=== PATIENT | female | born 1985 | race Caucasian/White ===

== ENCOUNTER 2016-09-08 14:51 | Emergency (ER) | payer OTHER ==
--- NOTE | 2016-09-08 14:57 | EDM.PDOC ---
ED HPI GENERAL MEDICAL PROBLEM - General Chief Complaint: Chest Pain Stated Complaint: CHEST PAINS Time Seen by Provider: 09/08/16 14:57 Source of Information: Reports: Patient - History of Present Illness INITIAL COMMENTS - FREE TEXT/NARRATIVE: HISTORY AND PHYSICAL: History of present illness: [] Patient presents with chest pain 3/10 nonradiating worsened by movement however pain has been worsening throughout the day, patient has a history of GERD, as well as reproducible component as softball just began She states she has had some associated shoulder pain and back pain not necessarily radiation but consistent with softball just starting up, I can reproduce pain with palpation over deltoid distribution as well as along axillary line and infraspinatus No fever nausea vomiting chills sweats no chest pain shortness breath headache current dizziness or palpitation no bowel or urine symptoms Review of systems: As per history of present illness and below otherwise all systems reviewed and negative. Past medical history: As per history of present illness and as reviewed below otherwise noncontributory. Surgical history: As per history of present illness and as reviewed below otherwise noncontributory. Social history: No reported history of drug or alcohol abuse. Family history: As per history of present illness and as reviewed below otherwise noncontributory. Physical exam: HEENT: Atraumatic, normocephalic, pupils reactive, negative for conjunctival pallor or scleral icterus, mucous membranes moist, throat clear, neck supple, nontender, trachea midline. I can reproduce mild dizziness with head tilt to the right there is ear effusion noted left and right no infectious process or exudate landmarks are visualized Lungs: Clear to auscultation, breath sounds equal bilaterally, chest nontender. Heart: S1S2, regular, negative for clicks, rubs, or JVD. Abdomen: Soft, nondistended, nontender. Negative for masses or hepatosplenomegaly. Negative for costovertebral tenderness. Pelvis: Stable nontender. Genitourinary: Deferred. Rectal: Deferred. Extremities: Atraumatic, negative for cords or calf pain. Neurovascular unremarkable. Neuro: Awake, alert, oriented. Cranial nerves II through XII unremarkable. Cerebellum unremarkable. Motor and sensory unremarkable throughout. Exam nonfocal. Diagnostics: [] Lab as below EKG Chest one view Therapeutics: [] Tonics GI cocktail Cataflam 50 mg by mouth 3 times a day when necessary [id number] Benadryl may benefit benign positional vertigo Impression: [] Bilateral ear effusion Benign positional vertigo Muscle spasm Definitive disposition and diagnosis as appropriate pending reevaluation and review of above. Left Chest Pain Score (Numeric/FACES): 10 - Related Data Allergies Allergy/AdvReac Type Severity Reaction Status Date / Time No Known Allergies Allergy Verified 09/08/16 15:10 Home Meds: Home Meds . 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 - Past Surgical History HEENT Surgical History: Reports: Oral surgery Social & Family History - Family History Cardiac: Reports: Hypertension, Other (see below) Other Cardiac Family History: heart surgery Respiratory: Reports: Asthma, Other (see below) Other Respiratory Family Hisory: emphysema Neurological: Reports: Seizure Hematologic: Reports: Other (see below) Other Hematologic Family History: lymphoma Oncologic: Reports: Lymphoma, Prostate, Other (see below) Other Oncologic Family History: stomach - Tobacco Use Smoking Status *Q: Never Smoker Years of Tobacco use: 10 - Alcohol Use Days Per Week of Alcohol Use: 0 - Recreational Drug Use Recreational Drug Use: No ED ROS GENERAL - Review of Systems Review Of Systems: ROS reveals no pertinent complaints other than HPI. ED EXAM, GENERAL - Physical Exam Exam: See Below Course - Vital Signs Last Recorded V/S: Last Vital Signs Temp 37.1 C 09/08/16 15:10 Pulse 101 H 09/08/16 15:10 Resp 16 09/08/16 15:43 BP 126/77 09/08/16 15:43 Pulse Ox 100 09/08/16 15:43 - Orders/Labs/Meds Orders: Active Orders 24 hr Category Date Time Status EKG Documentation Completion [RC] STAT Care 09/08/16 14:56 Active UA W/MICROSCOPIC [URIN] Stat Lab 09/08/16 14:56 Uncollected Labs: Laboratory Tests 09/08/16 09/08/16 09/08/16 Range/Units 15:05 15:05 15:05 WBC 8.04 (4.0-11.0) K/uL RBC 4.60 (4.30-5.90) M/uL Hgb 13.3 (12.0-16.0) g/dL Hct 40.9 (36.0-46.0) % MCV 88.9 (80.0-98.0) fL MCH 28.9 (27.0-32.0) pg MCHC 32.5 (31.0-37.0) g/dL RDW Std Deviation 45.8 (28.0-62.0) fl RDW Coeff of Riki 14 (11.0-15.0) % Plt Count 269 (150-400) K/uL MPV 9.80 (7.40-12.00) fL Neut % (Auto) 74.9 (48.0-80.0) % Lymph % (Auto) 17.4 (16.0-40.0) % Corson % (Auto) 6.0 (0.0-15.0) % Eos % (Auto) 1.6 (0.0-7.0) % Baso % (Auto) 0.1 (0.0-1.5) % Neut # (Auto) 6.0 H (1.4-5.7) K/uL Lymph # (Auto) 1.4 (0.6-2.4) K/uL Corson # (Auto) 0.5 (0.0-0.8) K/uL Eos # (Auto) 0.1 (0.0-0.7) K/uL Baso # (Auto) 0.0 (0.0-0.1) K/uL Nucleated RBC % 0.0 /100WBC Nucleated RBCs # 0 K/uL Sodium 139 (136-146) mmol/L Potassium 3.8 (3.5-5.1) mmol/L Chloride 107 (98-110) mmol/L Carbon Dioxide 21 (21-31) mmol/L BUN 8 (6.0-23.0) mg/dL Creatinine 0.9 (0.6-1.5) mg/dL Est Cr Clr Drug Dosing 80.00 mL/min Estimated GFR (MDRD) > 60.0 ml/min Glucose 87 (60-110) mg/dL Calcium 8.6 L (8.8-10.8) mg/dL Total Bilirubin 0.5 (0.1-1.5) mg/dL AST 18 (5-40) IU/L ALT 15 (8-54) IU/L Alkaline Phosphatase 61 (40-150) Creatine Kinase 183 (9-236) IU/L CK-MB (CK-2) 1.1 (0-6.6) ng/ml Troponin I < 0.10 (0.0-0.29) NG/ML Total Protein 7.6 (6.0-8.0) g/dL Albumin 4.3 (3.5-5.0) g/dL Globulin 3.3 (2.0-3.5) g/dL Albumin/Globulin Ratio 1.3 (1.3-2.8) Meds: Medications Discontinued Medications Generic Name Dose Route Start Last Admin Trade Name Agapitoq PRN Reason Stop Dose Admin Sodium Chloride 1,000 mls @ 999 mls/hr 09/08/16 15:07 09/08/16 15:10 Normal Saline IV 09/08/16 16:07 999 mls/hr STAT ONE Administration Pantoprazole Sodium 80 mg 09/08/16 15:08 09/08/16 15:36 Protonix Iv IVPUSH 09/08/16 15:09 80 mg .BOLUS ONE Administration Departure - Departure Time of Disposition: 16:24 Disposition: Home, Self-Care 01 Condition: good Clinical Impression: Muscle spasm, Benign positional vertigo Forms: ED Department Discharge Additional Instructions: Rest Ice 20 minute intervals 3 times daily Medication as prescribed [id number] Benadryl 25-50 mg 4 times a day a benefit for her ear effusion Return if symptoms persist or worsen Followup with primary care in 2 weeks HISTORY AND PHYSICAL: History of present illness: [] Review of systems: As per history of present illness and below otherwise all systems reviewed and negative. Past medical history: As per history of present illness and as reviewed below otherwise noncontributory. Surgical history: As per history of present illness and as reviewed below otherwise noncontributory. Social history: No reported history of drug or alcohol abuse. Family history: As per history of present illness and as reviewed below otherwise noncontributory. Physical exam: HEENT: Atraumatic, normocephalic, pupils reactive, negative for conjunctival pallor or scleral icterus, mucous membranes moist, throat clear, neck supple, nontender, trachea midline. Lungs: Clear to auscultation, breath sounds equal bilaterally, chest nontender. Heart: S1S2, regular, negative for clicks, rubs, or JVD. Abdomen: Soft, nondistended, nontender. Negative for masses or hepatosplenomegaly. Negative for costovertebral tenderness. Pelvis: Stable nontender. Genitourinary: Deferred. Rectal: Deferred. Extremities: Atraumatic, negative for cords or calf pain. Neurovascular unremarkable. Neuro: Awake, alert, oriented. Cranial nerves II through XII unremarkable. Cerebellum unremarkable. Motor and sensory unremarkable throughout. Exam nonfocal. Diagnostics: [] Therapeutics: [] Impression: [] Definitive disposition and diagnosis as appropriate pending reevaluation and review of above. - My Orders Last 24 Hours: My Active Orders 09/08/16 14:56 EKG Documentation Completion [RC] STAT UA W/MICROSCOPIC [URIN] Stat - Assessment/Plan Last 24 Hours: My Active Orders 09/08/16 14:56 EKG Documentation Completion [RC] STAT UA W/MICROSCOPIC [URIN] Stat
[2016-09-08] MEDS ORDERED: Sodium Chloride 0.9% 1,000 ML IV ONE (15:07)
[2016-09-08] MEDS ORDERED: Pantoprazole 40 MG Vial IVPUSH ONE (15:08)
[2016-09-08 15:48] LABS: CHLORIDE,CL 107 mmol/L (98-110); SODIUM,NA 139 mmol/L (136-146)
--- NOTE | 2016-09-08 15:50 | CR ---
EXAMINATION: Portable chest radiograph. HISTORY: Pain. FINDINGS: The trachea is midline. The cardiomediastinal silhouette is within normal limits. No pulmonary infil trates, effusions or pneumothorax. Osseous structures appear unremarkable. IMPRESSION: No acute cardiopulmonary process.
[2016-09-08 19:18] VITALS: BP 120/74
== END 2016-09-08 17:03 | disposition home or self-care (01) ==
LOC: MW.ED 14:51
DX: H81.10 Benign paroxysmal vertigo, unspecified ear (principal); H93.8X3 Other specified disorders of ear, bilateral; M62.838 Other muscle spasm
CPT/HCPCS: 71010; 80053; 81001; 82550; 82553; 84484; 85025; 87086; 93005; 96361; 96374; 99285; C9113; J7040; 99284

== ENCOUNTER 2016-09-19 14:16 | Emergency (ER) | payer OTHER ==
--- NOTE | 2016-09-19 14:35 | EDM.PDOC ---
ED HPI ENT - General Chief Complaint: ENT Problem Stated Complaint: SOMETHING STUCK IN THROAT Time Seen by Provider: 09/19/16 14:35 Source of Information: Reports: Patient History Limitations: Reports: No limitations - History of Present Illness INITIAL COMMENTS - FREE TEXT/NARRATIVE: HISTORY AND PHYSICAL: History of present illness: [Patient comes to the emergency room complaining of a sunflower seed stuck in back of her throat. She was eating sunflower seeds yesterday morning during a baseball game and she feels that one of seed shells is stuck in her left throat. She's tried numerous rhnu-ovl-calxecw remedies and treatments including gargling and eating and drinking various foods to get seed to pass. She has not had any difficulty breathing or difficulty swallowing. She has discomfort when she moves or twists her tongue. Has no other complaints or concerns today. Review of systems: As per history of present illness and below otherwise all systems reviewed and negative. Past medical history: As per history of present illness and as reviewed below otherwise noncontributory. Surgical history: As per history of present illness and as reviewed below otherwise noncontributory. Social history: No reported history of drug or alcohol abuse. Family history: As per history of present illness and as reviewed below otherwise noncontributory. Physical exam: HEENT: Atraumatic, normocephalic. Oral mucous membranes are pink and moist. Teeth are in good dentition. Posterior oropharynx is difficult to assess as patient is unable to fully relax her tongue even with use of a tongue blade. No foreign bodies visualized. Neck: Supple, no lymphadenopathy. The case midline. Lungs: Clear to auscultation, breath sounds equal bilaterally. Heart regular rate rhythm: No murmur gallop click or rub. Diagnostics: [Soft tissues of the neck x-ray] Impression: [Foreign body, throat] Plan: [Discussed x-ray findings with patient no foreign body. Discussed that am unable to locate a foreign body and that she should followup with ENT tomorrow morning for possible bronchoscopy. She is given referral information. Verbalized understanding of today's plan all of her questions are answered and concerns are addressed.] Definitive disposition and diagnosis as appropriate pending reevaluation and review of above. - Related Data Allergies/ADRs: Allergies Allergy/AdvReac Type Severity Reaction Status Date / Time No Known Allergies Allergy Verified 09/19/16 14:26 Home Meds: Home Meds . [No Known Home Meds] 09/08/16 [History] Past Medical History - Past Health History Medical/Surgical History: Denies Medical/Surgical History Gastrointestinal History: Reports: GERD [employer] History: Reports: Neurological History: Reports: Migraines - Past Surgical History HEENT Surgical History: Reports: Oral surgery Social & Family History - Family History Family Medical History: Noncontributory Cardiac: Reports: Hypertension, Other (see below) Other Cardiac Family History: heart surgery Respiratory: Reports: Asthma, Other (see below) Other Respiratory Family Hisory: emphysema Neurological: Reports: Seizure Hematologic: Reports: Other (see below) Other Hematologic Family History: lymphoma Oncologic: Reports: Lymphoma, Prostate, Other (see below) Other Oncologic Family History: stomach - Tobacco Use Smoking Status *Q: Never Smoker Years of Tobacco use: 10 Second Hand Smoke Exposure: No - Caffeine Use Caffeine Use: Reports: Coffee Caffeine Use Comment: 2-3 cups - Alcohol Use Days Per Week of Alcohol Use: 0 - Recreational Drug Use Recreational Drug Use: No ED ROS ENT - Review of Systems Review Of Systems: ROS reveals no pertinent complaints other than HPI. ED EXAM, ENT - Physical Exam Exam: See Below Course - Vital Signs Last Recorded V/S: Last Vital Signs Temp 97.4 F 09/19/16 14:28 Pulse 72 09/19/16 16:02 Resp 16 09/19/16 16:02 BP 116/68 09/19/16 16:02 Pulse Ox 98 09/19/16 16:02 - Orders/Labs/Meds Orders: Active Orders 24 hr Category Date Time Status Neck Soft Tissue [CR] Stat Exams 09/19/16 14:48 Taken Departure - Departure Time of Disposition: 16:00 Disposition: Home, Self-Care 01 Condition: good Clinical Impression: Foreign body in throat Qualifiers: Encounter type: initial encounter Qualified Code(s): T17.208A - Unspecified foreign body in pharynx causing other injury, initial encounter Instructions: Sore Throat Referrals: PCP,None [Primary Care Provider] - Forms: ED Department Discharge Additional Instructions: The following information is given to patients seen in the emergency department who are being discharged to home. This information is to outline your options for follow-up care. We provide all patients seen in our emergency department with a follow-up referral. The need for follow-up, as well as the timing and circumstances, are variable depending upon the specifics of your emergency department visit. If you don't have a primary care physician on staff, we will provide you with a referral. We always advise you to contact your personal physician following an emergency department visit to inform them of the circumstance of the visit and for follow-up with them and/or the need for any referrals to a consulting specialist. The emergency department will also refer you to a specialist when appropriate. This referral assures that you have the opportunity for follow-up care with a specialist. All of these measure are taken in an effort to provide you with optimal care, which includes your follow-up. Under all circumstances we always encourage you to contact your private physician who remains a resource for coordinating your care. When calling for follow-up care, please make the office aware that this follow-up is from your recent emergency room visit. If for any reason you are refused follow-up, please contact the emergency department at and asked to speak to the emergency department charge nurse. Specialty care- ENT [address] [place] [address] Call the above listed clinic first thing tomorrow morning to schedule an evaluation. Continue to push fluids and gargle. Return to ER as needed as discussed. - My Orders Last 24 Hours: My Active Orders 09/19/16 14:48 Neck Soft Tissue [CR] Stat - Assessment/Plan Last 24 Hours: My Active Orders 09/19/16 14:48 Neck Soft Tissue [CR] Stat
[2016-09-19 16:19] VITALS: BP 116/68
--- NOTE | 2016-09-20 11:17 | CR ---
EXAM DATE: 09/19/16 PATIENT'S AGE: 31 Patient: KURTIS HERNANDEZ Facility: [place], [place] Site . Site : 1983 Study: XRay ST Neck [id number]/9/2017 3:07:30 PM Ordering Physician: Doctor Parham Final Report: Indication: Foreign body in throat. Findings: The prevertebral soft tissue structures are intact and there is no abnormal thickening noted the prevertebral soft tissues or epiglottis. No radiopaque foreign body is identified. Trachea is intact. Dilation of the upper cervical spine is unremarkable. Impression: Normal soft tissue neck. If there is continued clinical concern regarding foreign body in the throat, consider direct endoscopic evaluation. Dictated by Dalia Bhat MD @ Sep 19 2016 3:38PM (Electronic Signature) Report Signed by Proxy and Original Signed Document filed in the Medical Record. ROMAINE
== END 2016-09-19 16:02 | disposition home or self-care (01) ==
LOC: MW.ED 14:16
DX: T17.228A Food in pharynx causing other injury, initial encounter (principal); K21.9 Gastro-esophageal reflux disease without esophagitis
CPT/HCPCS: 70360; 70360-26; 99282; 99284

== ENCOUNTER 2017-05-17 08:34 | Emergency (ER) | payer OTHER ==
[2017-05-17] MEDS ORDERED: Ibuprofen 800 MG Tab PO ONE (08:53)
--- NOTE | 2017-05-17 09:19 | CR ---
EXAMINATION: Left ankle HISTORY: Pain COMPARISON: 01/28/2014 TECHNIQUE: 3 views FINDINGS/IMPRESSION: There is moderate soft tissue swelling noted surrounding the left ankle most pro minent overlying the lateral malleolus. There is no definite fracture or acute osseous abdomen identi fied. Ankle mortise and talar dome appear intact.
[2017-05-17 10:15] VITALS: BP 128/70
--- NOTE | 2017-05-19 17:19 | EDM.PDOC ---
ED HPI GENERAL MEDICAL PROBLEM - General Chief Complaint: Lower Extremity Injury/Pain Stated Complaint: LT ANKLE HURTS Time Seen by Provider: 05/17/17 09:04 Source of Information: Reports: Patient History Limitations: Reports: No Limitations - History of Present Illness INITIAL COMMENTS - FREE TEXT/NARRATIVE: History of present illness: []Patient jumped out of truck and felt pain in her left ankle. She notes swelling and tenderness over the lateral part of her ankle. Review of systems: As per history of present illness and below otherwise all systems reviewed and negative. Past medical history: As per history of present illness and as reviewed below otherwise noncontributory. Surgical history: As per history of present illness and as reviewed below otherwise noncontributory. Social history: No reported history of drug or alcohol abuse. Family history: As per history of present illness and as reviewed below otherwise noncontributory. Physical exam: General: Well developed, well nourished in NAD HEENT: Atraumatic, normocephalic, pupils reactive, negative for conjunctival pallor or scleral icterus, mucous membranes moist, throat clear, neck supple, nontender, trachea midline. Lungs: Clear to auscultation, breath sounds equal bilaterally, chest nontender. Heart: S1S2, regular, negative for clicks, rubs, or JVD. Abdomen: Soft, nondistended, nontender. Negative for masses or hepatosplenomegaly. Negative for costovertebral tenderness. Pelvis: Stable nontender. Genitourinary: Deferred. Rectal: Deferred. Extremities: Atraumatic, negative for cords or calf pain. Neurovascular unremarkable. Neuro: Awake, alert, oriented. Cranial nerves II through XII unremarkable. Cerebellum unremarkable. Motor and sensory unremarkable throughout. Exam nonfocal. Diagnostics: []X-ray showing no fracture but soft tissue swelling seen over the lateral malleolus Therapeutics: []Air splint Impression: []Left ankle sprain Plan: []Ice elevate Motrin for pain follow-up orthopedics in terms worsen or change Definitive disposition and diagnosis as appropriate pending reevaluation and review of above. Left Ankle Pain Score (Numeric/FACES): 8 - Related Data Allergies Allergy/AdvReac Type Severity Reaction Status Date / Time No Known Allergies Allergy Verified 05/17/17 08:40 Home Meds: Home Meds . 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: Musculoskeletal History: Reports: None Neurological History: Reports: Migraines Other Neuro History: trigeminal neuralgia Psychiatric History: Reports: None Endocrine/Metabolic History: Reports: Obesity/BMI 30+ Hematologic History: Reports: None Immunologic History: Reports: None Oncologic (Cancer) History: Reports: None Dermatologic History: Reports: None - Infectious Disease History Infectious Disease History: Reports: Chicken Pox - Past Surgical History Head Surgeries/Procedures: Reports: None HEENT Surgical History: Reports: Oral Surgery Cardiovascular Surgical History: Reports: None Female Surgical History: Reports: None Musculoskeletal Surgical History: Reports: None Dermatological Surgical History: Reports: None Social & Family History - Family History Family Medical History: Noncontributory Cardiac: Reports: Hypertension, Other (See Below) Other Cardiac Family History: heart surgery Respiratory: Reports: Asthma, Other (See Below) Other Respiratory Family Hisory: emphysema Neurological: Reports: Seizure Hematologic: Reports: Other (See Below) Other Hematologic Family History: lymphoma Oncologic: Reports: Lymphoma, Prostate, Other (See Below) Other Oncologic Family History: stomach - Tobacco Use Smoking Status *Q: Never Smoker Years of Tobacco use: 10 Second Hand Smoke Exposure: No - Caffeine Use Caffeine Use: Reports: Coffee Caffeine Use Comment: 2-3 cups - Alcohol Use Days Per Week of Alcohol Use: 0 - Recreational Drug Use Recreational Drug Use: No Review of Systems - Review of Systems Review Of Systems: See Below ED EXAM, GENERAL - Physical Exam Exam: See Below (See history of present illness) Course - Vital Signs Last Recorded V/S: Last Vital Signs Temp 97.4 F 05/17/17 08:41 Pulse 98 05/17/17 10:12 Resp 18 05/17/17 10:12 BP 128/70 05/17/17 10:12 Pulse Ox 98 05/17/17 10:12 - Orders/Labs/Meds Meds: Medications Discontinued Medications Generic Name Dose Route Start Last Admin Trade Name Freq PRN Reason Stop Dose Admin Ibuprofen 800 mg 05/17/17 08:53 05/17/17 09:20 Motrin PO 05/17/17 08:54 800 mg ONETIME ONE Administration Departure - Departure Time of Disposition: 10:15 Disposition: Home, Self-Care 01 Condition: Good Clinical Impression: Left ankle sprain Qualifiers: Encounter type: initial encounter Involved ligament of ankle: unspecified ligament Qualified Code(s): S93.402A - Sprain of unspecified ligament of left ankle, initial encounter - Discharge Information Instructions: Ankle Sprain, [id number] Referrals: PCP,None [Primary Care Provider] - Forms: ED Department Discharge Additional Instructions: The following information is given to patients seen in the emergency department who are being discharged to home. This information is to outline your options for follow-up care. We provide all patients seen in our emergency department with a follow-up referral. The need for follow-up, as well as the timing and circumstances, are variable depending upon the specifics of your emergency department visit. If you don't have a primary care physician on staff, we will provide you with a referral. We always advise you to contact your personal physician following an emergency department visit to inform them of the circumstance of the visit and for follow-up with them and/or the need for any referrals to a consulting specialist. The emergency department will also refer you to a specialist when appropriate. This referral assures that you have the opportunity for follow-up care with a specialist. All of these measure are taken in an effort to provide you with optimal care, which includes your follow-up. Under all circumstances we always encourage you to contact your private physician who remains a resource for coordinating your care. When calling for follow-up care, please make the office aware that this follow-up is from your recent emergency room visit. If for any reason you are refused follow-up, please contact the [facility] Emergency Department at and asked to speak to the emergency department charge nurse. Ibuprofen ice elevate follow-up with orthopedics if needed [facility] Special[facility] - [facility] [address], [address] [place] [address]
== END 2017-05-17 10:13 | disposition home or self-care (01) ==
LOC: MW.ED 08:34
DX: S93.402A Sprain of unspecified ligament of left ankle, initial encounter (principal); W17.89XA Other fall from one level to another, initial encounter
CPT/HCPCS: 73610; 99283; A9270

== ENCOUNTER 2020-07-30 15:36 | Emergency (ER) | payer OTHER ==
--- NOTE | 2020-07-30 16:02 | EDM.PDOC ---
ED HPI GENERAL MEDICAL PROBLEM - General Chief Complaint: Chest Pain Stated Complaint: TIGHTNESS IN CHEST Time Seen by Provider: 07/30/20 15:40 Source of Information: Reports: Patient History Limitations: Reports: No Limitations - History of Present Illness INITIAL COMMENTS - FREE TEXT/NARRATIVE: 34-year-old female no past medical history presents for multiple complaints. Her primary complaint is chest pain that started last night. It is a sharp/stabbing sensation in her substernal chest. It is not pleuritic, it is not exertional, it is not worse with palpation per patient. It is associated with some shortness of breath and difficulty taking in a deep breath. Patient has not noticed any one-sided lower extremity swelling. She also notes that last night when she was short of breath she had a pins and needle sensation in bilateral upper extremities and lower extremities. She does note a history of anxiety as well. chest Pain Score (Numeric/FACES): 6 - Related Data Allergies Allergy/AdvReac Type Severity Reaction Status Date / Time No Known Allergies Allergy Verified 07/30/20 15:48 Home Meds: Home Meds . 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: Musculoskeletal History: Reports: None Neurological History: Reports: Migraines Other Neuro History: trigeminal neuralgia Psychiatric History: Reports: Depression Endocrine/Metabolic History: Reports: Obesity/BMI 30+ Hematologic History: Reports: None Immunologic History: Reports: None Oncologic (Cancer) History: Reports: None Dermatologic History: Reports: None - Infectious Disease History Infectious Disease History: Reports: Chicken Pox - Past Surgical History Head Surgeries/Procedures: Reports: None HEENT Surgical History: Reports: Oral Surgery Cardiovascular Surgical History: Reports: None Female Surgical History: Reports: Section Neurological Surgical History: Reports: None Musculoskeletal Surgical History: Reports: None Dermatological Surgical History: Reports: None Social & Family History - Family History Family Medical History: No Pertinent Family History Cardiac: Reports: Hypertension, Other (See Below) Other Cardiac Family History: heart surgery Respiratory: Reports: Asthma, Other (See Below) Other Respiratory Family Hisory: emphysema Neurological: Reports: Seizure Hematologic: Reports: Other (See Below) Other Hematologic Family History: lymphoma Oncologic: Reports: Lymphoma, Prostate, Other (See Below) Other Oncologic Family History: stomach - Caffeine Use Caffeine Use: Reports: None Caffeine Use Comment: 2-3 cups - Recreational Drug Use Recreational Drug Use: No ED ROS GENERAL - Review of Systems Review Of Systems: Comprehensive ROS is negative, except as noted in HPI. ED EXAM, GENERAL - Physical Exam Exam: See Below Exam Limited By: No Limitations General Appearance: Alert, WD/WN, No Apparent Distress Throat/Mouth: Normal Voice, No Airway Compromise Head: Atraumatic, Normocephalic Neck: Normal Inspection Respiratory/Chest: No Respiratory Distress, Lungs Clear, Normal Breath Sounds, No Accessory Muscle Use Cardiovascular: Normal Peripheral Pulses, Regular Rate, Rhythm, No Edema GI/Abdominal: Soft, Non-Tender Extremities: Normal Inspection Neurological: Alert Psychiatric: Normal Affect, Normal Mood Skin Exam: Warm, Dry, Intact, Normal Color #1 Interpretation EKG Date: 07/30/20 Time: 15:42 Rhythm: NSR Rate (Beats/Min): 93 [place]: Normal P-Wave: Present QRS: Normal ST-T: Normal QT: Normal [place]/PQ Interval: 166 Comparison: NA - No Prior EKG EKG Interpretation Comments: no evidence of ischemia Course - Vital Signs Last Recorded V/S: Last Vital Signs Temp 97.8 F 07/30/20 15:45 Pulse 110 H 07/30/20 15:45 Resp 18 07/30/20 15:45 BP 139/72 07/30/20 15:45 Pulse Ox 98 07/30/20 15:45 - Orders/Labs/Meds Orders: Active Orders 24 hr Category Date Time Status Cardiac Monitoring [RC] . DIRECTED Care 07/30/20 16:04 Active EKG Documentation Completion [RC] STAT Care 07/30/20 16:03 Active Pulse Oximetry [RC] ASDIRECTED Care 07/30/20 16:04 Active Sodium Chloride 0.9% [Saline Flush] Med 07/30/20 16:03 Active 10 ml FLUSH ASDIRECTED PRN Sodium Chloride 0.9% [Saline Flush] Med 07/30/20 16:03 Active 2.5 ml FLUSH ASDIRECTED PRN Saline Lock Insert [OM.PC] Stat Oth 07/30/20 16:04 Ordered Medication Orders Sodium Chloride (Saline Flush) 10 ml FLUSH ASDIRECTED PRN PRN Reason: Keep Vein Open Last Admin: 07/30/20 16:44 Dose: 10 ml Documented by: CB Sodium Chloride (Saline Flush) 2.5 ml FLUSH ASDIRECTED PRN PRN Reason: Keep Vein Open Last Admin: 07/30/20 16:43 Dose: 2.5 ml Documented by: CB Labs: Laboratory Tests 07/30/20 07/30/20 07/30/20 Range/Units 15:45 15:45 15:45 WBC 6.66 (4.0-11.0) K/uL RBC 4.57 (4.30-5.90) M/uL Hgb 14.1 (12.0-16.0) g/dL Hct 42.6 (36.0-46.0) % MCV 93.2 (80.0-98.0) fL MCH 30.9 (27.0-32.0) pg MCHC 33.1 (31.0-37.0) g/dL RDW Std Deviation 45.7 (28.0-62.0) fl RDW Coeff of Riki 13 (11.0-15.0) % Plt Count 269 (150-400) K/uL MPV 10.00 (7.40-12.00) fL Neut % (Auto) 71.5 (48.0-80.0) % Lymph % (Auto) 18.6 (16.0-40.0) % Dougherty % (Auto) 8.7 (0.0-15.0) % Eos % (Auto) 0.9 (0.0-7.0) % Baso % (Auto) 0.3 (0.0-1.5) % Neut # (Auto) 4.8 (1.4-5.7) K/uL Lymph # (Auto) 1.2 (0.6-2.4) K/uL Dougherty # (Auto) 0.6 (0.0-0.8) K/uL Eos # (Auto) 0.1 (0.0-0.7) K/uL Baso # (Auto) 0.0 (0.0-0.1) K/uL Nucleated RBC % 0.0 /100WBC Nucleated RBCs # 0 K/uL INR 1.02 APTT 25.3 (18.6-31.3) SEC D-Dimer, Quantitative 1.93 H (0.0-0.50) mg/L FEU Sodium 140 (136-145) mmol/L Potassium 3.6 (3.5-5.1) mmol/L Chloride 104 (98-107) mmol/L Carbon Dioxide 25.2 (21.0-32.0) mmol/L BUN 8 (7.0-18.0) mg/dL Creatinine 0.9 (0.6-1.0) mg/dL Est Cr Clr Drug Dosing 77.76 mL/min Estimated GFR (MDRD) > 60.0 ml/min Glucose 90 (74-106) mg/dL Calcium 8.2 L (8.5-10.1) mg/dL Total Bilirubin 0.3 (0.2-1.0) mg/dL AST 14 L (15-37) IU/L ALT 21 (14-63) IU/L Alkaline Phosphatase 47 (46-116) U/L Troponin I < 0.050 (0.000-0.056) ng/mL Total Protein 7.3 (6.4-8.2) g/dL Albumin 3.6 (3.4-5.0) g/dL Globulin 3.7 (2.6-4.0) g/dL Albumin/Globulin Ratio 1.0 (0.9-1.6) TSH 3rd Generation 1.25 (0.36-3.74) uIU/mL HCG, Qual (NEG) 07/30/20 Range/Units 15:45 WBC (4.0-11.0) K/uL RBC (4.30-5.90) M/uL Hgb (12.0-16.0) g/dL Hct (36.0-46.0) % MCV (80.0-98.0) fL MCH (27.0-32.0) pg MCHC (31.0-37.0) g/dL RDW Std Deviation (28.0-62.0) fl RDW Coeff of Riki (11.0-15.0) % Plt Count (150-400) K/uL MPV (7.40-12.00) fL Neut % (Auto) (48.0-80.0) % Lymph % (Auto) (16.0-40.0) % Dougherty % (Auto) (0.0-15.0) % Eos % (Auto) (0.0-7.0) % Baso % (Auto) (0.0-1.5) % Neut # (Auto) (1.4-5.7) K/uL Lymph # (Auto) (0.6-2.4) K/uL Dougherty # (Auto) (0.0-0.8) K/uL Eos # (Auto) (0.0-0.7) K/uL Baso # (Auto) (0.0-0.1) K/uL Nucleated RBC % /100WBC Nucleated RBCs # K/uL INR APTT (18.6-31.3) SEC D-Dimer, Quantitative (0.0-0.50) mg/L FEU Sodium (136-145) mmol/L Potassium (3.5-5.1) mmol/L Chloride (98-107) mmol/L Carbon Dioxide (21.0-32.0) mmol/L BUN (7.0-18.0) mg/dL Creatinine (0.6-1.0) mg/dL Est Cr Clr Drug Dosing mL/min Estimated GFR (MDRD) ml/min Glucose (74-106) mg/dL Calcium (8.5-10.1) mg/dL Total Bilirubin (0.2-1.0) mg/dL AST (15-37) IU/L ALT (14-63) IU/L Alkaline Phosphatase (46-116) U/L Troponin I (0.000-0.056) ng/mL Total Protein (6.4-8.2) g/dL Albumin (3.4-5.0) g/dL Globulin (2.6-4.0) g/dL Albumin/Globulin Ratio (0.9-1.6) TSH 3rd Generation (0.36-3.74) uIU/mL HCG, Qual NEGATIVE (NEG) Meds: Medications Generic Name Dose Route Start Last Admin Trade Name Freq PRN Reason Stop Dose Admin Sodium Chloride 10 ml 07/30/20 16:03 07/30/20 16:44 Saline Flush FLUSH 10 ml ASDIRECTED PRN Administration Keep Vein Open Sodium Chloride 2.5 ml 07/30/20 16:03 07/30/20 16:43 Saline Flush FLUSH 2.5 ml ASDIRECTED PRN Administration Keep Vein Open Discontinued Medications Generic Name Dose Route Start Last Admin Trade Name Ike PRN Reason Stop Dose Admin Acetaminophen 1,000 mg 07/30/20 16:03 07/30/20 16:43 Tylenol Extra Strength PO 07/30/20 16:04 1,000 mg ONETIME ONE Administration Acetaminophen Confirm 07/30/20 16:16 07/30/20 16:42 Tylenol Extra Strength Administered 07/30/20 16:17 Not Given Dose 1,000 mg .ROUTE .STK-MED ONE Acetaminophen Confirm 07/30/20 16:41 07/30/20 16:52 Tylenol Extra Strength Administered 07/30/20 16:42 Not Given Dose 1,000 mg .ROUTE .STK-MED ONE Iopamidol 100 ml 07/30/20 17:44 07/30/20 17:46 Isovue Multipack-370 (76%) IVPUSH 07/30/20 17:45 100 ml ONETIME STA Administration - Re-Assessments/Exams Free Text/Narrative Re-Assessment/Exam: 07/30/20 16:03 EKG is nonischemic. Will get labs including troponin and D-dimer. Will get a chest x-ray. 07/30/20 17:09 Patient's labs are remarkable for elevated D-dimer. Troponin levels negative. Additional labs are unremarkable. Will get CTA chest to rule out pulmonary embolism. 07/30/20 18:02 Patient CTA scan does not reveal any evidence of pulmonary embolism, there is incidental finding of cholelithiasis and patient has complained of right upper quadrant pain on and off. Will discharge with general surgery follow-up. No evidence of cholecystitis clinically or by labs. Departure - Departure Time of Disposition: 18:03 Disposition: Home, Self-Care 01 Condition: Good Clinical Impression: Cholelithiasis Qualifiers: Cholelithiasis location: other site Biliary obstruction: without biliary obstruction Qualified Code(s): K80.80 - Other cholelithiasis without obstruction - Discharge Information Instructions: Cholelithiasis Referrals: Christina Elizabeth [Primary Care Provider] - Forms: ED Department Discharge Additional Instructions: Your labs were grossly unremarkable aside from an elevated D-dimer level. Due to this abnormality, we performed a CT angiogram of your chest to make sure you do not have a blood clot in your lungs. This test showed normal lungs without evidence of a blood clot. There was an incidental finding of gallstones or cholelithiasis. You were mentioning that you have had some right upper quadrant pain on and off and this could very well be the cause. You should follow-up with a general surgeon to get further evaluate evaluation regarding your gallstones. Information is provided below. If you develop worsening pain, vom iting with inability to keep any food or water down, fevers, or yellowing of your eyes or skin you should come back to the emergency department as this can be signs of an infection in the gallbladder. [facility] [address] [place] [address], [address] [place], [place] [id number] The following information is given to patients seen in the emergency department who are being discharged to home. This information is to outline your options for follow-up care. We provide all patients seen in our emergency department with a follow-up referral. The need for follow-up, as well as the timing and circumstances, are variable depending upon the specifics of your emergency department visit. If you don't have a primary care physician on staff, we will provide you with a referral. We always advise you to contact your personal physician following an emergency department visit to inform them of the circumstance of the visit and for follow-up with them and/or the need for any referrals to a consulting specialist. The emergency department will also refer you to a specialist when appropriate. This referral assures that you have the opportunity for follow-up care with a specialist. All of these measure are taken in an effort to provide you with optimal care, which includes your follow-up. Under all circumstances we always encourage you to contact your private physician who remains a resource for coordinating your care. When calling for fo llow-up care, please make the office aware that this follow-up is from your recent emergency room visit. If for any reason you are refused follow-up, please contact the [facility] Emergency Department at and asked to speak to the emergency department charge nurse. Please follow up with your primary care physician. If you do not have a primary care physician, see below: [facility] [address] [place] [address] My [facility] [address] [place] [address] [facility] [address] [place] [address] Sepsis Event Note (ED) - Evaluation Sepsis Screening Result: No Definite Risk - Focused Exam Vital Signs: Vital Signs Temp Pulse Resp BP Pulse Ox 07/30/20 15:45 97.8 F 110 H 18 139/72 98 - My Orders Last 24 Hours: My Active Orders 07/30/20 16:03 EKG Documentation Completion [RC] STAT Sodium Chloride 0.9% [Saline Flush] 10 ml FLUSH ASDIRECTED PRN Sodium Chloride 0.9% [Saline Flush] 2.5 ml FLUSH ASDIRECTED PRN 07/30/20 16:04 Cardiac Monitoring [RC] . DIRECTED Pulse Oximetry [RC] ASDIRECTED Saline Lock Insert [OM.PC] Stat - Assessment/Plan Last 24 Hours: My Active Orders 07/30/20 16:03 EKG Documentation Completion [RC] STAT Sodium Chloride 0.9% [Saline Flush] 10 ml FLUSH ASDIRECTED PRN Sodium Chloride 0.9% [Saline Flush] 2.5 ml FLUSH ASDIRECTED PRN 07/30/20 16:04 Cardiac Monitoring [RC] . DIRECTED Pulse Oximetry [RC] ASDIRECTED Saline Lock Insert [OM.PC] Stat
[2020-07-30] MEDS ORDERED: Acetaminophen 500 MG Tab PO ONE (16:03)
[2020-07-30] MEDS ORDERED: Sodium Chloride 0.9% 2.5 ML Syringe FLUSH PRN (16:03)
[2020-07-30] MEDS ORDERED: Sodium Chloride 0.9% 10 ML Syringe FLUSH PRN (16:03)
[2020-07-30] MEDS ORDERED: Acetaminophen 500 MG Tab ONE ×2 (16:16→16:41)
[2020-07-30 16:40] LABS: BLOOD UREA NITROGEN,BUN 8 mg/dL (7.0-18.0); CARBON DIOXIDE,CO2 25.2 mmol/L (21.0-32.0); CHLORIDE,CL 104 mmol/L (98-107); GLUCOSE RANDOM 90 mg/dL (74-106); POTASSIUM,K 3.6 mmol/L (3.5-5.1); SODIUM,NA 140 mmol/L (136-145)
--- NOTE | 2020-07-30 16:43 | CR ---
INDICATION: CHEST PAIN CHEST, ONE VIEW An AP radiograph of the chest was performed. Comparison: 09/08/2016. The lungs appear clear and no pleural effusions are identified. The cardiomediastinal silhouette and pulmonary vasculature appear normal, as do the visualized bones. IMPRESSION: No acute intrathoracic abnormality identified. BRIANNA PRATHER MD [employer] Dictated by: Jon Prather MD @ 07/30/2020 16:43:04 (Electronically Signed)
[2020-07-30] MEDS ORDERED: Iopamidol 755 MG/ML 500 ML Multipack Bottle IVPUSH STA (17:44)
--- NOTE | 2020-07-30 17:57 | CT ---
INDICATION: Chest pain. CT CHEST WITH CONTRAST TECHNIQUE: Multidetector CT imaging was performed through the chest following intravenous contrast administration using 100 mL Isovue 370. Coronal and sagittal reconstructions were generated. COMPARISON: None. FINDINGS: Lungs and airways: Mild dependent lung atelectasis. Incidental calcified granuloma in the left lower lobe. No confluent infiltrates, suspicious nodules, or masses. Central airways are patent. Pleura and pleural spaces: No pleural effusions or pneumothorax. Heart and mediastinum: Normal heart size. No significant pericardial effusion. No pathologically enlarged mediastinal lymph nodes. Vascular structures: No filling defects in the pulmonary arterial tree to suggest pulmonary emboli. Normal caliber thoracic aorta. Chest wall and axillae: No mass or axillary lymphadenopathy. Osseous structures: Normal for age. No acute fractures identified. Upper abdomen: Cholelithiasis, without findings suggesting cholecystitis. Small hiatal hernia. IMPRESSION: 1. No pulmonary emboli, pneumonia, or other acute intrathoracic abnormality identified. 2. Cholelithiasis. 3. Small hiatal hernia. BRIANNA PRATHER MD [employer] Dictated by Jon Prather MD @ 07/30/2020 5:54:13 PM Dictated by: Jon Prather MD @ 07/30/2020 17:54:48 (Electronically Signed)
[2020-07-30 18:23] VITALS: BP 103/63; PULSE 75
== END 2020-07-30 18:23 | disposition home or self-care (01) ==
LOC: MW.ED 15:36
DX: K80.80 Other cholelithiasis without obstruction (principal); R06.02 Shortness of breath; R07.2 Precordial pain; E66.9 Obesity, unspecified; Z68.36 Body mass index [BMI] 36.0-36.9, adult
CPT/HCPCS: 36415; 71045; 71275; 80053; 84443; 84484; 84703; 85025; 85379; 85610; 85730; 93005; 99285; A9270; Q9967

== ENCOUNTER → 2020-08-15 | Day surgery (SDC) | payer OTHER ==
[~2020-08-15] MED LIST: Acetaminophen 1,000 MG in Premix Bag 1 BAG IV ONE; Acetaminophen/oxyCODONE 325-5 MG Tab PO PRN; Bupivacaine 25%/EPINEPHrine/PF 30 ML ONE; Dexamethasone 4 MG/ML 5 ML MDV ONE; Glycopyrrolate 0.2 MG/ML SDV ONE; Ketorolac 30 MG/ML SDV ONE; Lactated Ringers 1,000 ML IV SCH; Lidocaine 2% 5 ML SDV ONE; Midazolam 1 MG/ML 2 ML SDV ONE; Octyl 2-Cyanoacrylate 1 Tube ONE; Ondansetron 4 MG/2 ML SDV ONE; Propofol 200 MG/20 ML SDV ONE; Rocuronium Bromide 50 MG/5 ML Syringe ONE; Scopolamine 1.5 MG Transdermal Patch ONE; fentaNYL 250 MCG/5 ML SDV ONE
--- NOTE | 2020-08-15 10:31 | PCM.PREANE ---
Preanesthetic Assessment - Anesthesia/Transfusion/Family Hx Anesthesia History: Prior Anesthesia Without Reaction Other Type of Anesthesia Reaction Comment: oral surgery was local and was spinal- no general anesthesia Family History of Anesthesia Reaction: No Transfusion History: No Prior Transfusion(s) Intubation History: Unknown - Review of Systems General: No Symptoms Pulmonary: No Symptoms Cardiovascular: No Symptoms Gastrointestinal: Abdominal Pain Neurological: No Symptoms Other: Reports: None - Physical Assessment Height: 5 ft 5 in Weight: 101.605 kg ASA Class: 2 Mental Status: Alert & Oriented x3 Airway Class: Mallampati = 2 Dentition: Reports: Normal Dentition Thyro-Mental Finger Breadths: 3 Mouth Opening Finger Breadths: 3 ROM/Head Extension: Full Lungs: Clear to Auscultation, Normal Respiratory Effort Cardiovascular: Regular Rate, Regular Rhythm - Allergies Allergies/Adverse Reactions: Allergies Allergy/AdvReac Type Severity Reaction Status Date / Time latex Allergy Rash Verified 08/12/20 14:09 - Blood Blood Available: No - Anesthesia Plan Pre-Op Medication Ordered: None - Acknowledgements Anesthesia Type Planned: General Anesthesia Pt an Appropriate Candidate for the Planned Anesthesia: Yes Alternatives and Risks of Anesthesia Discussed w Pt/Guardian: Yes Pt/Guardian Understands and Agrees with Anesthesia Plan: Yes PreAnesthesia Questionnaire - Past Health History Medical/Surgical History: Denies Medical/Surgical History HEENT History: Reports: None Cardiovascular History: Reports: None Respiratory History: Reports: None Gastrointestinal History: Reports: Cholelithiasis, GERD Genitourinary History: Reports: None 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: Musculoskeletal History: Reports: None Neurological History: Reports: Concussion, Migraines, Seizure Other Neuro History: trigeminal neuralgia, currently having seizures- possibly from migraines or stress- last seizure was 2 months ago, has migraines daily Psychiatric History: Reports: Anxiety, Depression Endocrine/Metabolic History: Reports: Obesity/BMI 30+ (BMI 37.3 BMI 37.3) Hematologic History: Reports: None Immunologic History: Reports: None Oncologic (Cancer) History: Reports: None Dermatologic History: Reports: None - Infectious Disease History Infectious Disease History: Reports: Chicken Pox - Past Surgical History Head Surgeries/Procedures: Reports: None HEENT Surgical History: Reports: Oral Surgery Cardiovascular Surgical History: Reports: None Female Surgical History: Reports: Section Neurological Surgical History: Reports: None Musculoskeletal Surgical History: Reports: None Dermatological Surgical History: Reports: None - SUBSTANCE USE Tobacco Use Status *Q: Former Tobacco User Tobacco Use Within Last Twelve Months: No Recreational Drug Use History: No - HOME MEDS Home Medications: Home Meds Ibuprofen 2 - 3 tab PO ASDIRECTED PRN 08/11/20 [History] SUMAtriptan succinate [Imitrex] 100 mg PO ASDIRECTED PRN 08/11/20 [History] hydrOXYzine HCL [hydrOXYzine] 25 mg PO TID PRN 08/11/20 [History] - CURRENT (IN HOUSE) MEDS Current Meds: Current Medications Lactated Ringer's (Ringers, Lactated) 1,000 mls @ 125 mls/hr IV ASDIRECTED ROSE MARIE Discontinued Medications Dexamethasone (Dexamethasone) Confirm Administered Dose 20 mg .ROUTE .STK-MED ONE Stop: 08/15/20 09:06 Fentanyl (Sublimaze) Confirm Administered Dose 250 mcg .ROUTE .STK-MED ONE Stop: 08/15/20 09:06 Bupivacaine HCl/Epinephrine Bitart (Sensorc Mpf 0.25%-Epi 1:[id number]) Confirm Administered Dose 30 mls @ as directed .ROUTE .STK-MED ONE Stop: 08/15/20 09:21 Lidocaine (Xylocaine-Mpf 2%) Confirm Administered Dose 5 ml .ROUTE .STK-MED ONE Stop: 08/15/20 09:06 Midazolam HCl (Versed 1 Mg/Ml) Confirm Administered Dose 2 mg .ROUTE .STK-MED ONE Stop: 08/15/20 09:06 Octyl Cyanoacrylate (Dermabond Advance) Confirm Administered Dose 1 applic .ROUTE .STK-MED ONE Stop: 08/15/20 09:20 Ondansetron HCl (Zofran) Confirm Administered Dose 4 mg .ROUTE .STK-MED ONE Stop: 08/15/20 09:06 Propofol (Diprivan 20 Ml) Confirm Administered Dose 200 mg .ROUTE .STK-MED ONE Stop: 08/15/20 09:06 Rocuronium Mona (Rocuronium Mona) Confirm Administered Dose 50 mg .ROUTE .STK-MED ONE Stop: 08/15/20 09:06
--- NOTE | 2020-08-15 12:06 | PCM.OPNOTE ---
- General Post-Op/Procedure Note Date of Surgery/Procedure: 08/15/20 Operative Procedure(s): lap mauricio Findings: gb was distended, wall was yellow and green, wall was not thickened; cw cholecysitis;a 10 mm stone and sludge; [id number] Pre Op Diagnosis: cholecystitis Post-Op Diagnosis: Same Anesthesia Technique: General ET Tube Primary Surgeon: Sean Mathis Pathology: sent Complications: None Condition: Good
[2020-08-15] MEDS: fentaNYL 100 MCG/2 ML SDV IVPUSH PRN ×3 (12:32→14:10)
--- NOTE | 2020-08-15 12:38 | OR ---
SURGEON: Sean Mathis MD DATE OF PROCEDURE: 08/15/2020 PREOPERATIVE DIAGNOSIS: Acute on chronic cholecystitis. POSTOPERATIVE DIAGNOSIS: Acute on chronic cholecystitis. PROCEDURE PERFORMED: Laparoscopic cholecystectomy. PRIMARY SURGEON: Sean Mathis MD COMPLICATIONS: None. FINDINGS: Gallbladder was very distended and yellow and green consistent with chronic cholecystitis and acute cholecystitis. There were medium-sized stones there and some small sludge. Wall was not thickened. PROCEDURE PERFORMED: The patient was taken to the operating room and placed in the supine position. Upon induction of general endotracheal anesthesia, the patient's abdomen was prepped and draped in a sterile fashion. Timeout had been called, patient identified, procedure identified, antibiotic identified and procedure then proceeded. After assessment of appropriate landmark, a supraumbilical incision was made. Using [employer], a 5-mm trocar was placed on the side of the umbilical stalk, not in the umbilical stalk, on the side. Upon gaining entrance of abdominal cavity, an epigastric trocar was placed, again is 5-mm port. The patient already had a pneumoperitoneum. The camera was then moved to the epigastric port, looked back to the umbilical port. Using a 5-mm port, another 5-mm port was placed a little bit sideways from the umbilical stalk. The distance should be around 5-10 mm between the two ports and both ports are placed under direct video supervision. A Diego needle was introduced percutaneously. This was then used to puncture the gallbladder and hang it up above the liver. Using a straight Diego needle as well as 2-0 Prolene, the gallbladder was hung penitentiary. At the dome of the gallbladder, there is not enough traction so it should be a little bit between the dome and between penitentiary so like three-quarters of the way. Attention now turned to dissecting out of the peritoneum covering the gallbladder, isolating the duct, then four clips were placed, three proximally and one distally, then the cystic duct was then cut, continued dissection of Calot triangle. The cystic area was clamped four times, three proximally and one distally, then cut. The gallbladder was carefully dissected out from the liver bed, then placement of the 5-mm trocars using the same incision on umbilical site, the trocars were kind of slid under the skin to avoid making the incision bigger. The gallbladder was finished from the liver bed and the two 5-mm trocars were then coalesced into one single incision, then 10-mm trocar was placed, followed with placement of endoscopic bag. The gallbladder was then placed in endoscopic bag. The umbilical site was closed with 2-0 Vicryl followed with subcutaneous stitches and Histoacryl. Epigastric site was closed with 4-0 Vicryl and Histoacryl. The patient was awakened, extubated and transferred to recovery in hemodynamically stable condition. At the conclusion of the surgery, before closing the abdominal wound, instrument count and sponge count were done and were correct. The patient tolerated the procedure well. There were no intraoperative complications. Dr. Mathis was present through the whole procedure. LEX / LONDON /[id number]
--- NOTE | 2020-08-15 13:03 | PCM.POSTAN ---
POST ANESTHESIA ASSESSMENT - MENTAL STATUS Mental Status: Alert, Oriented - VITAL SIGNS Vital Signs: Last Vital Signs Temp 36.6 C 08/15/20 12:10 Pulse 57 L 08/15/20 13:00 Resp 19 08/15/20 13:00 BP 108/68 08/15/20 13:00 Pulse Ox 93 L 08/15/20 13:00 - RESPIRATORY Respiratory Status: Respiratory Rate WNL, Airway Patent, O2 Saturation Stable - CARDIOVASCULAR CV Status: Pulse Rate WNL, Blood Pressure Stable - GASTROINTESTINAL GI Status: No Symptoms - PAIN Pain Score: 5 - POST OP HYDRATION Hydration Status: Adequate & Stable - OBSERVATIONS Free Text/Narrative:: No anesthesia problems
[2020-08-15 16:00] VITALS: BP 103/63; PULSE 65
--- NOTE | 2020-08-15 16:00 | PCM48HPAN ---
Post Anesthesia Note - EVALUATION WITHIN 48HRS OF ANESTHETIC Vital Signs in Normal Range: Yes Patient Participated in Evaluation: Yes Respiratory Function Stable: Yes Airway Patent: Yes Cardiovascular Function Stable: Yes Hydration Status Stable: Yes Pain Control Satisfactory: Yes Nausea and Vomiting Control Satisfactory: Yes Mental Status Recovered: Yes Vital Signs: Last Vital Signs Temp 36.1 C 08/15/20 13:06 Pulse 78 08/15/20 14:51 Resp 14 08/15/20 14:51 BP 103/56 L 08/15/20 14:51 Pulse Ox 91 L 08/15/20 14:51
== END | disposition home or self-care (01) ==
LOC: MW.SDS 10:06
PROVIDERS: ATTEND Surgery
DX: K80.12 Calculus of gallbladder with acute and chronic cholecystitis without obstruction (principal); K82.8 Other specified diseases of gallbladder; K21.9 Gastro-esophageal reflux disease without esophagitis; E66.9 Obesity, unspecified; Z68.37 Body mass index [BMI] 37.0-37.9, adult; Z91.040 Latex allergy status; Z87.891 Personal history of nicotine dependence; Z79.899 Other long term (current) drug therapy; Z98.890 Other specified postprocedural states
CPT/HCPCS: 47562; 81025; A9270; J0131; J0690; J1100; J2250; J2405; J2704; J3010; J3490; J7120; 88304; J1885

== ENCOUNTER 2021-02-25 14:10 | Emergency (ER) | payer BC, OTHER ==
--- NOTE | 2021-02-25 14:44 | EDM.PDOC ---
ED HPI GENERAL MEDICAL PROBLEM - General Chief Complaint: Headache Stated Complaint: HEADACE, VOMITTING, Time Seen by Provider: 02/25/21 15:35 Source of Information: Reports: Patient History Limitations: Reports: No Limitations - History of Present Illness INITIAL COMMENTS - FREE TEXT/NARRATIVE: HISTORY AND PHYSICAL: History of present illness: Patient is a 35-year-old female who presents to the emergency room with complaints of intermittent headaches over the past 2 weeks which have been more intense and severe than the migraine she has had in the past. She has light sensitivity, noise sensitivity, nausea and vomiting associated with this. She does have a prescription for Imitrex but states it has not been working. She denies any injury, trauma or falls. Patient denies any fever, chills, change in vision, syncope or near syncope. Denies any chest pain, neck pain/stiffness, back pain, shortness of breath or cough. Denies any abdominal pain, diarrhea, constipation or dysuria. No concern for , took a test yesterday which was negative. Has not noted any blood in urine or stool. Patient has been eating and drinking appropriately. Review of systems: As per history of present illness and below otherwise all systems reviewed and negative. Past medical history: As per history of present illness and as reviewed below otherwise noncontributory. Surgical history: As per history of present illness and as reviewed below otherwise noncontributory. Social history: See social history for further information Family history: As per history of present illness and as reviewed below otherwise noncontributory. Physical exam: General: Well developed and well nourished. Alert and orientated x 3. Nontoxic in appearance and in no acute distress. Vital signs are stable and have been reviewed by me. Nursing notes were reviewed. HEENT: Atraumatic, normocephalic, pupils equal and reactive bilaterally, negative for conjunctival pallor or scleral icterus, mucous membranes moist, TMs normal bilaterally, throat clear, neck supple, nontender, trachea midline. No drooling or trismus noted. No meningeal signs. No hot potato voice noted. Lungs: Clear to auscultation bilaterally. No wheezes, rales, or rhonchi. Chest nontender. Normal work of breathing, no accessory muscles used. Heart: S1S2, regular rate and rhythm without overt murmur, gallops, or rubs. No JVD. No peripheral edema Abdomen: Soft, nondistended, nontender. Normoactive bowel sounds. Negative for masses or costovertebral tenderness. Skin: Intact, warm, dry. No lesions or rashes noted. Hematologic: No petechiae or purpra. Mucosa appropriate color and normal nail bed color and refill. Extremities: Atraumatic, moves all extremities per self without difficulty or deficits, negative for cords or calf pain. Neurovascular unremarkable. Neuro: Awake, alert, oriented. Cranial nerves II through XII unremarkable. Cerebellum unremarkable. Motor and sensory unremarkable throughout. Exam nonfocal. Psychiatric: Mood and affect are appropriate. Normal thought process. Answering questions appropriately. Please note that the patient was seen and evaluated during the 2019 SARS-CoV-2 novel coronavirus pandemic period. Community viral transmission is ongoing at time of this encounter and the emergency department is operating under pandemic response procedures. Medical Decision Making: Patient is a 35-year-old female who has a past history of migraines and states that her Imitrex has not helped with the migraine she has had over the past several days. She has light sensitivity, noise sensitivity nausea, vomiting. Significant other is at bedside and is adamant she receives a head CT or "we will drive ourselves to [place]". Spoke with patient about the risks versus benefits, patient would like to move forward with a head CT. She states it is not the worst headache of her life although is "different" than previous migraines. Due to this I will get a CBC and a CMP along with a migraine cocktail and head CT. Patient declines wanting a urine as she states she took test yesterday which was negative. She is willing to sign a release of liability form for imaging. Patient does have a slight leukocytosis although she has no source other than the headache. Head CT shows a stable, no radiographic evidence of acute intracranial abnormalities. Interval development of severe bilateral sphenoid sinusitis. I have talked with the patient about today's findings, in addition to providing specific details for plan of care. Patient does not believe she has a sinus infection. I did give her informed information on this and will send a prescription for antibiotics. He does have improvement of symptoms after fluids and medications. Vital signs remained stable. Reassessment at the time of disposition demonstrates that the patient is in no acute distress. The patient is stable for discharge, counseling was provided and we discussed in great detail signs and symptoms that would prompt them to return to the Emergency Department. Medication, follow up and supportive care measures were reviewed and discussed. Voices understanding and is agreeable to plan of care. Denies any further questions or concerns at this time. Diagnostics: CBC, CMP, Head CT Therapeutics: IV fluid, Benadryl, Zofran, Reglan, Toradol Prescription: Augmentin, Zofran Impression: Migraine headache Sinusitis Plan: 1. You were evaluated today on an emergent basis. Your labs and head CT show a sinusitis. I have sent a script for antibiotics and anti-nausea medication. Plea se take as directed. 2. You can alternate Tylenol and ibuprofen as needed for pain and fever management. 3. We encourage you to follow up with your primary care provider and/or recommended specialist in the next few days for re-evaluation and further care/management. 4. If your symptoms should worsen, new symptoms develop or any of the signs and symptoms we discussed should arise please return to the emergency room or call 911 (if needed). Definitive disposition and diagnosis as appropriate pending reevaluation and review of above. Headache Pain Score (Numeric/FACES): 9 - Related Data Allergies Allergy/AdvReac Type Severity Reaction Status Date / Time latex Allergy Rash Verified 02/25/21 15:38 Home Meds: Home Meds SUMAtriptan succinate [Imitrex] 100 mg PO ASDIRECTED PRN 08/11/20 [History] hydrOXYzine HCL [hydrOXYzine] 25 mg PO TID PRN 08/11/20 [History] Amoxicillin/Potassium Clav [Augmentin 875-125 Tablet] 1 each PO BID 7 Days #14 tablet 02/25/21 [Rx] Ondansetron [Zofran ODT] 4 mg PO Q6H PRN #8 tab.dis 02/25/21 [Rx] Past Medical History - Past Health History Medical/Surgical History: Denies Medical/Surgical History HEENT History: Reports: None Cardiovascular History: Reports: None Respiratory History: Reports: None Gastrointestinal History: Reports: Cholelithiasis, GERD Genitourinary History: Reports: None 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: Reports: Musculoskeletal History: Reports: None Neurological History: Reports: Concussion, Migraines, Seizure Other Neuro History: trigeminal neuralgia, currently having seizures- possibly from migraines or stress- last seizure was 2 months ago, has migraines daily Psychiatric History: Reports: Anxiety, Depression Endocrine/Metabolic History: Reports: Obesity/BMI 30+ (BMI 37.3 BMI 37.3) Hematologic History: Reports: None Immunologic History: Reports: None Oncologic (Cancer) History: Reports: None Dermatologic History: Reports: None - Infectious Disease History Infectious Disease History: Reports: Chicken Pox - Past Surgical History Head Surgeries/Procedures: Reports: None HEENT Surgical History: Reports: Oral Surgery Cardiovascular Surgical History: Reports: None Female Surgical History: Reports: Section Neurological Surgical History: Reports: None Musculoskeletal Surgical History: Reports: None Dermatological Surgical History: Reports: None Social & Family History - Family History Family Medical History: No Pertinent Family History Cardiac: Reports: Hypertension, Other (See Below) Other Cardiac Family History: heart surgery Respiratory: Reports: Asthma, Other (See Below) Other Respiratory Family Hisory: emphysema Neurological: Reports: Seizure Hematologic: Reports: Other (See Below) Other Hematologic Family History: lymphoma Oncologic: Reports: Lymphoma, Prostate, Other (See Below) Other Oncologic Family History: stomach - Caffeine Use Caffeine Use: Reports: None Caffeine Use Comment: 2-3 cups ED ROS GENERAL - Review of Systems Review Of Systems: Comprehensive ROS is negative, except as noted in HPI. - Physical Exam Exam: See Below (See dictation) Course - Vital Signs Last Recorded V/S: Last Vital Signs Temp 96.3 F L 02/25/21 17:15 Pulse 75 02/25/21 17:15 Resp 15 02/25/21 17:15 BP 96/55 L 02/25/21 17:15 Pulse Ox 98 02/25/21 17:15 - Orders/Labs/Meds Labs: Laboratory Tests 02/25/21 02/25/21 Range/Units 15:36 15:36 WBC 11.35 H (4.0-11.0) K/uL RBC 4.52 (4.30-5.90) M/uL Hgb 14.0 (12.0-16.0) g/dL Hct 41.3 (36.0-46.0) % MCV 91.4 (80.0-98.0) fL MCH 31.0 (27.0-32.0) pg MCHC 33.9 (31.0-37.0) g/dL RDW Std Deviation 42.9 (28.0-62.0) fl RDW Coeff of Riki 13 (11.0-15.0) % Plt Count 387 (150-400) K/uL MPV 9.60 (7.40-12.00) fL Neut % (Auto) 62.3 (48.0-80.0) % Lymph % (Auto) 28.5 (16.0-40.0) % [place] % (Auto) 7.7 (0.0-15.0) % Eos % (Auto) 1.2 (0.0-7.0) % Baso % (Auto) 0.3 (0.0-1.5) % Neut # (Auto) 7.1 H (1.4-5.7) K/uL Lymph # (Auto) 3.2 H (0.6-2.4) K/uL [place] # (Auto) 0.9 H (0.0-0.8) K/uL Eos # (Auto) 0.1 (0.0-0.7) K/uL Baso # (Auto) 0.0 (0.0-0.1) K/uL Nucleated RBC % 0.0 /100WBC Nucleated RBCs # 0 K/uL Sodium 140 (136-145) mmol/L Potassium 4.2 (3.5-5.1) mmol/L Chloride 101 (98-107) mmol/L Carbon Dioxide 29.3 (21.0-32.0) mmol/L BUN 14 (7.0-18.0) mg/dL Creatinine 1.0 (0.6-1.0) mg/dL Est Cr Clr Drug Dosing 69.31 mL/min Estimated GFR (MDRD) > 60.0 ml/min Glucose 94 (74-106) mg/dL Calcium 9.8 (8.5-10.1) mg/dL Total Bilirubin 0.4 (0.2-1.0) mg/dL AST 20 (15-37) IU/L ALT 27 (14-63) IU/L Alkaline Phosphatase 71 (46-116) U/L Total Protein 7.8 (6.4-8.2) g/dL Albumin 3.9 (3.4-5.0) g/dL Globulin 3.9 (2.6-4.0) g/dL Albumin/Globulin Ratio 1.0 (0.9-1.6) Meds: Medications Discontinued Medications Generic Name Dose Route Start Last Admin Trade Name Freq PRN Reason Stop Dose Admin Diphenhydramine HCl 50 mg 02/25/21 15:32 02/25/21 15:41 Diphenhydramine 50 Mg/Ml Sdv IVPUSH 02/25/21 15:33 50 mg ONETIME ONE Administration Sodium Chloride 1,000 mls @ 999 mls/hr 02/25/21 15:32 02/25/21 15:40 Normal Saline IV 02/25/21 16:32 999 mls/hr STAT ONE Administration Ketorolac Tromethamine 30 mg 02/25/21 15:32 02/25/21 15:46 Ketorolac 30 Mg/Ml Sdv IVPUSH 02/25/21 15:33 30 mg ONETIME ONE Administration Metoclopramide HCl 10 mg 02/25/21 15:32 02/25/21 15:43 Metoclopramide 10 Mg/2 Ml Sdv IV 02/25/21 15:33 10 mg ONETIME ONE Administration Ondansetron HCl 4 mg 02/25/21 15:32 02/25/21 16:55 Ondansetron 4 Mg/2 Ml Sdv IVPUSH 02/25/21 15:33 4 mg ONETIME ONE Administration Ondansetron HCl Confirm 02/25/21 16:52 02/25/21 16:58 Ondansetron 4 Mg/2 Ml Sdv Administered 02/25/21 16:53 Not Given Dose 4 mg .ROUTE .STK-MED ONE Departure - Departure Time of Disposition: 17:07 Disposition: Home, Self-Care 01 Clinical Impression: Migraine headache Qualifiers: Migraine type: unspecified Intractability: not intractable Sinusitis Qualifiers: Sinusitis location: sphenoidal Chronicity: acute Recurrence: non-recurrent Qualified Code(s): J01.30 - Acute sphenoidal sinusitis, unspecified - Discharge Information Prescriptions: Amoxicillin/Potassium Clav [Augmentin 875-125 Tablet] 1 each PO BID 7 Days #14 tablet Ondansetron [Zofran ODT] 4 mg PO Q6H PRN #8 tab.dis PRN Reason: Nausea Instructions: Sinusitis, Adult, [id number] Referrals: Princess Cerna DO [Primary Care Provider] - Forms: ED Department Discharge Additional Instructions: The following information is given to patients seen in the emergency department who are being discharged to home. This information is to outline your options for follow-up care. We provide all patients seen in our emergency department with a follow-up referral. The need for follow-up, as well as the timing and circumstances, are variable depending upon the specifics of your emergency department visit. If you don't have a primary care physician on staff, we will provide you with a referral. We always advise you to contact your personal physician following an emergency department visit to inform them of the circumstance of the visit and for follow-up with them and/or the need for any referrals to a consulting specialist. The emergency department will also refer you to a specialist when appropriate. This referral assures that you have the opportunity for follow-up care with a specialist. All of these measure are taken in an effort to provide you with optimal care, which includes your follow-up. Under all circumstances we always encourage you to contact your private physician who remains a resource for coordinating your care. When calling for follow-up care, please make the office aware that this follow-up is from your recent emergency room visit. If for any reason you are refused follow-up, please contact the [facility] Emergency Department at and asked to speak to the emergency department charge nurse. [facility] [address] [place] [id number] [place] [address] Thank you for choosing the [facility] emergency department in [place] for your medical needs today. It was a pleasure caring for you. Today you were seen in the emergency department for migraine headache. 1. You were evaluated today on an emergent basis. Your labs and head CT show a sinusitis. I have sent a script for antibiotics and anti-nausea medication. Please take as directed. 2. You can alternate Tylenol and ibuprofen as needed for pain and fever management. 3. We encourage you to follow up with your primary care provider and/or recommended specialist in the next few days for re-evaluation and further care/management. 4. If your symptoms should worsen, new symptoms develop or any of the signs and symptoms we discussed should arise please return to the emergency room or call 911 (if needed). Sepsis Event Note (ED) - Focused Exam Vital Signs: Vital Signs Temp Pulse Resp BP Pulse Ox 02/25/21 17:15 96.3 F L 75 15 96/55 L 98 02/25/21 15:38 96.7 F L 81 16 108/66 95
[2021-02-25] MEDS ORDERED: Ondansetron 4 MG/2 ML SDV IVPUSH ONE (15:32)
[2021-02-25] MEDS ORDERED: Ketorolac 30 MG/ML SDV IVPUSH ONE (15:32)
[2021-02-25] MEDS ORDERED: Sodium Chloride 0.9% 1,000 ML IV ONE (15:32)
[2021-02-25] MEDS ORDERED: diphenhydrAMINE 50 MG/ML SDV IVPUSH ONE (15:32)
[2021-02-25] MEDS ORDERED: Metoclopramide 10 MG/2 ML SDV IV ONE (15:32)
[2021-02-25 16:18] LABS: BLOOD UREA NITROGEN,BUN 14 mg/dL (7.0-18.0); CARBON DIOXIDE,CO2 29.3 mmol/L (21.0-32.0); CHLORIDE,CL 101 mmol/L (98-107); GLUCOSE RANDOM 94 mg/dL (74-106); POTASSIUM,K 4.2 mmol/L (3.5-5.1); SODIUM,NA 140 mmol/L (136-145)
[2021-02-25] MEDS ORDERED: Ondansetron 4 MG/2 ML SDV ONE (16:52)
--- NOTE | 2021-02-25 17:01 | CT ---
INDICATION: Migraine headaches TECHNIQUE: Non-contrast CT of the head is submitted. Compared to prior MRI of the head from May 19, 2020 FINDINGS: The ventricles, sulci and gyri are of normal size, shape and contour. Midline structures are centrally located. No convincing evidence of intra- or extra-axial fluid collections. Near complete opacification the sphenoid sinuses bilaterally. IMPRESSION: 1. Stable, no radiographic evidence of acute intracranial abnormalities. 2. Interval development of severe bilateral sphenoid sinusitis. Please note that all CT scans at this facility use dose modulation, iterative reconstruction, and/or weight-based dosing when appropriate to reduce radiation dose to as low as reasonably achievable. Dictated by Julio Ward MD @ 02/25/2021 5:00:44 PM (Electronically Signed)
[2021-02-25 17:16] VITALS: BP 96/55; PULSE 75
== END 2021-02-25 17:21 | disposition home or self-care (01) ==
LOC: MW.ED 14:10
DX: G43.909 Migraine, unspecified, not intractable, without status migrainosus (principal); J01.30 Acute sphenoidal sinusitis, unspecified; E66.9 Obesity, unspecified; Z91.040 Latex allergy status; Z68.34 Body mass index [BMI] 34.0-34.9, adult
CPT/HCPCS: 36415; 70450; 80053; 85025; 96374; 96375; 99284; J1200; J1885; J2405; J2765; J7030

== ENCOUNTER 2022-01-05 12:44 | Inpatient (IN) | payer BC ==
[2022-01-05] MEDS ORDERED: Sodium Chloride 0.9% 20 ML SDV IV PRN (13:43)
[2022-01-05] MEDS ORDERED: ceFAZolin 2 GM in Premix Bag 1 BAG IV ONE (13:43)
[2022-01-05] MEDS ORDERED: Sodium Chloride 0.9% 10 ML Syringe FLUSH PRN (13:43)
[2022-01-05] MEDS ORDERED: Sodium Chloride 0.9% 2.5 ML Syringe FLUSH PRN (13:43)
[2022-01-05] MEDS ORDERED: Citric Acid/Sodium Citrate Solution 30 ML Cup PO ONE (13:43)
[2022-01-05] MEDS ORDERED: Oxytocin/0.9 % Sodium Chloride 30 UNIT/500 ML BAG IV SCH ×2 (13:45→16:00)
[2022-01-05] MEDS: Lactated Ringers 1,000 ML IV SCH ×2 (14:00→14:42)
[2022-01-05] MEDS ORDERED: ceFAZolin 1 GM Vial ONE (14:07)
[2022-01-05] MEDS ORDERED: Oxytocin 10 Units/1 ML SDV ONE (14:07)
[2022-01-05] MEDS ORDERED: Morphine PF 10 MG/10 ML SDV ONE (14:07)
[2022-01-05] MEDS ORDERED: Lidocaine 2% 100 MG/5 ML Syringe ONE (14:07)
[2022-01-05] MEDS ORDERED: fentaNYL 100 MCG/2 ML SDV ONE (14:07)
[2022-01-05] MEDS ORDERED: Dexamethasone 4 MG/ML 5 ML MDV ONE (14:07)
[2022-01-05] MEDS ORDERED: Ondansetron 4 MG/2 ML SDV ONE ×2 (14:07→14:08)
[2022-01-05] MEDS ORDERED: Lidocaine 2% 5 ML SDV ONE (14:08)
[2022-01-05] MEDS ORDERED: Phenylephrine 1% 10 MG/ML SDV ONE (14:14)
[2022-01-05] MEDS ORDERED: Octyl 2-Cyanoacrylate 1 g/1 mL 1 APPLIC PEN ONE (14:20)
[2022-01-05] MEDS ORDERED: Ropivacaine 0.5% 5 MG/ML 30 ML SDV ONE (14:23)
[2022-01-05] MEDS ORDERED: Ondansetron 4 MG/2 ML SDV IVPUSH PRN ×3 (14:44→15:54)
[2022-01-05] MEDS ORDERED: Naloxone 0.4 MG/ML SDV IVPUSH PRN (14:44)
[2022-01-05] MEDS ORDERED: ePHEDrine 50 MG/ML SDV IVPUSH PRN (14:44)
[2022-01-05] MEDS ORDERED: fentaNYL 100 MCG/2 ML SDV IVPUSH PRN (14:44)
[2022-01-05] MEDS ORDERED: Morphine 4 MG/ML VIAL IVPUSH PRN (14:44)
[2022-01-05] MEDS ORDERED: Albuterol 0.083% 2.5 MG/3 ML Neb Soln NEB PRN (14:44)
[2022-01-05] MEDS ORDERED: diphenhydrAMINE 50 MG/ML SDV IVPUSH PRN ×2 (14:44→15:54)
[2022-01-05] MEDS ORDERED: HYDROmorphone 1 MG/ML Syringe IVPUSH PRN (14:44)
[2022-01-05] MEDS ORDERED: fentaNYL 50 MCG/ML SDV IVPUSH PRN (14:44)
[2022-01-05] MEDS ORDERED: Acetaminophen/oxyCODONE 325-5 MG Tab PO PRN ×2 (14:44→15:54)
[2022-01-05] MEDS ORDERED: Metoclopramide 10 MG/2 ML SDV IVPUSH PRN (14:44)
[2022-01-05] MEDS ORDERED: Acetaminophen 1,000 MG in Premix Bag 1 BAG IV PRN (15:02)
[2022-01-05] MEDS ORDERED: Tranexamic Acid 1,000 MG in Sodium Chloride 0.9% 100 ML IV PRN (15:54)
[2022-01-05] MEDS ORDERED: Bisacodyl 10 MG Supp RECTAL PRN (15:54)
[2022-01-05] MEDS ORDERED: Lanolin 100% Cream 7 GM Tube TOP PRN (15:54)
[2022-01-05] MEDS ORDERED: Methylergonovine 0.2 MG/1 ML Amp IM PRN (15:54)
[2022-01-05] MEDS ORDERED: Misoprostol 200 MCG Tab RECTAL PRN (15:54)
[2022-01-05] MEDS ORDERED: Oxytocin 10 Units/1 ML SDV IM PRN (15:54)
[2022-01-05] MEDS ORDERED: Lactated Ringers 1,000 ML IV SCH (16:00)
[2022-01-05] MEDS: Phenylephrine HCl In 0.9% NaCl 1 MG/10 ML Vial IVPUSH SCH (17:36)
[2022-01-05] MEDS: Ketorolac 30 MG/ML SDV IVPUSH SCH ×2 (17:56→23:50)
[2022-01-05] MEDS: Docusate Sodium 100 MG Cap PO SCH (20:30)
[2022-01-06] MEDS: Ketorolac 30 MG/ML SDV IVPUSH SCH ×3 (05:33→17:57)
[2022-01-06] MEDS: Docusate Sodium 100 MG Cap PO SCH ×2 (09:22→19:59)
[2022-01-06] MEDS ORDERED: Nalbuphine HCl 10 MG/ 1ML Amp IVPUSH PRN (12:10)
[2022-01-06] MEDS ORDERED: Ibuprofen 800 MG Tab PO PRN (16:00)
[2022-01-06] MEDS: Acetaminophen/oxyCODONE 325-5 MG Tab PO PRN (23:25)
[2022-01-07] MEDS: Acetaminophen/oxyCODONE 325-5 MG Tab PO PRN (08:22)
[2022-01-07] MEDS ORDERED: Acetaminophen/HYDROcodone 325-5 MG Tab PO PRN (08:51)
[2022-01-07] MEDS ORDERED: Lansoprazole 30 MG Orally Disintegrating Tab.CR PO SCH (09:00)
[2022-01-07] MEDS: Ketorolac 30 MG/ML SDV IM SCH ×2 (09:09→15:07)
[2022-01-07] MEDS: Docusate Sodium 100 MG Cap PO SCH (09:10)
[2022-01-07 16:08] VITALS: BP 100/58; PULSE 92
== END 2022-01-07 16:53 | disposition home or self-care (01) | DRG 540 ==
LOC: MW.OBCHECK 12:44 → MW.OB 12:46 → MW.OBCHECK 14:58 → MW.OB 14:59
PROVIDERS: ADMIT Obstetrics & Gynecology; ATTEND Obstetrics & Gynecology
PROC: 10D00Z1 Extraction of Products of Conception, Low, Open Approach (ICD-10-PCS; principal; 2022-01-05)
DX: O34.211 Maternal care for low transverse scar from previous cesarean delivery (principal); Z3A.39 39 weeks gestation of pregnancy; Z37.0 Single live birth; Z20.822 Contact with and (suspected) exposure to COVID-19; O99.214 Obesity complicating childbirth; E66.9 Obesity, unspecified; O99.344 Other mental disorders complicating childbirth; F41.8 Other specified anxiety disorders
CPT/HCPCS: 01961; 36415; 59025; 64488; 82803; 85014; 85018; 85027; 86592; 86850; 86900; 86901; A9270-GY; J0131; J0690; J1100; J1200; J1885; J2274; J2300; J2370; J2405; J2590; J2795; J3010; J7120; U0002

== ENCOUNTER 2023-09-13 16:08 | Emergency (ER) | payer BC ==
[2023-09-13] MEDS: Sodium Chloride 0.9% 10 ML Syringe FLUSH PRN (16:28)
[2023-09-13] MEDS: Sodium Chloride 0.9% 2.5 ML Syringe FLUSH PRN (16:28)
[2023-09-13 16:37] LABS: BASOPHILS ABSOLUTE AUTO 0.02 K/uL (0.00-0.20); BASOPHILS PERCENT AUTO 0.3 % (0.0-1.0); EOSINOPHILS PERCENT AUTO 1.3 % (0.0-6.0); HEMATOCRIT 34.5 % (37.0-47.0); HEMOGLOBIN 11.8 g/dL (12.0-16.0); IMMATURE GRAN ABSOLUTE AUTO 0.03 K/uL (0.00-0.05); IMMATURE GRAN PERCENT AUTO 0.4 % (0.0-0.4); LYMPHOCYTES ABSOLUTE AUTO 2.11 K/uL (1.00-4.80); LYMPHOCYTES PERCENT AUTO 26.5 % (24.0-44.0); MEAN CORPUSCULAR HEMOGLOBIN 30.7 pg (28.0-32.0); MEAN CORPUSCULAR HGB CONC 34.2 g/dL (32.0-36.0); MEAN CORPUSCULAR VOLUME 89.8 fL (83.0-99.0); MONOCYTES ABSOLUTE AUTO 0.64 K/uL (0.00-0.80); MONOCYTES PERCENT AUTO 8.1 % (0.0-8.0); NEUTROPHILS ABSOLUTE AUTO 5.05 K/uL (1.80-7.70); NEUTROPHILS PERCENT AUTO 63.4 % (41.0-71.0); PLATELET COUNT,PLT 201 K/uL (150-400); RED BLOOD CELL COUNT 3.84 M/uL (4.10-5.30); WHITE BLOOD CELL COUNT,WBC 7.95 K/uL (3.9-11.3)
[2023-09-13 17:06] LABS: A/G RATIO 0.7 (0.9-1.6); ALANINE AMINOTRANSFERASE,ALT 13 IU/L (14-63); ALBUMIN 2.5 g/dL (3.4-5.0); ALKALINE PHOSPHATASE 80 U/L (46-116); ASPARTATE AMNIOTRANSFERASE,AST 15 IU/L (15-37); BILIRUBIN TOTAL 0.2 mg/dL (0.2-1.0); BLOOD UREA NITROGEN,BUN 6 mg/dL (7.0-18.0); CALCIUM 8.4 mg/dL (8.5-10.1); CARBON DIOXIDE,CO2 22.9 mmol/L (21.0-32.0); CHLORIDE,CL 104 mmol/L (98-107); CREATININE 0.5 mg/dL (0.6-1.0); EST CRCL DRUG DOSING (CG) 134.58 mL/min; GLUCOSE RANDOM 81 mg/dL (74-106); POTASSIUM,K 3.8 mmol/L (3.5-5.1); PROTEIN TOTAL,TP 6.3 g/dL (6.4-8.2); SODIUM,NA 138 mmol/L (136-145)
[2023-09-13 17:13] LABS: ESTIMATED GFR 122 mL/min (>60)
[2023-09-13] MEDS: Iopamidol 755 MG/ML 500 ML Multipack Bottle IVPUSH STA (20:00)
[2023-09-13 22:22] VITALS: BP 118/72; PULSE 88
== END 2023-09-13 22:22 | disposition home or self-care (01) ==
LOC: MW.ED 16:08
DX: R07.9 Chest pain, unspecified (principal); K21.9 Gastro-esophageal reflux disease without esophagitis; E66.9 Obesity, unspecified; Z91.040 Latex allergy status; Z79.82 Long term (current) use of aspirin; Z79.899 Other long term (current) drug therapy; Z75.8 Other problems related to medical facilities and other health care; Z68.35 Body mass index [BMI] 35.0-35.9, adult
CPT/HCPCS: 36415; 71275; 80053; 84484; 85025; 85379; 93971; 99285; J3490; Q9967; 93010; 99284

== ENCOUNTER 2023-11-07 20:33 | Inpatient (IN) | payer BC ==
[2023-11-07 21:02] LABS: APPEARANCE,URINE CLEAR; BILIRUBIN,URINE NEGATIVE (NEGATIVE); COLOR,URINE YELLOW; GLUCOSE,URINE NEGATIVE (NEGATIVE); KETONES,URINE NEGATIVE (NEGATIVE); LEUKOCYTE ESTERASE,URINE NEGATIVE (NEGATIVE); NITRITE,URINE NEGATIVE (NEGATIVE); OCCULT BLOOD,URINE TRACE-INTACT (NEGATIVE); PROTEIN,URINE NEGATIVE (NEGATIVE); UROBILINOGEN,URINE 0.2 EU/dL (<2.0)
[2023-11-07] MEDS: Lactated Ringers 1,000 ML IV ONE (21:35)
[2023-11-07] MEDS ORDERED: Misoprostol 200 MCG Tab RECTAL PRN (22:34)
[2023-11-07] MEDS ORDERED: Citric Acid/Sodium Citrate Solution 30 ML Cup PO ONE (22:34)
[2023-11-07] MEDS ORDERED: Sodium Chloride 0.9% 10 ML Syringe FLUSH PRN (22:34)
[2023-11-07] MEDS ORDERED: Ondansetron 4 MG/2 ML SDV IVPUSH PRN (22:34)
[2023-11-07] MEDS ORDERED: Sodium Chloride 0.9% 20 ML SDV IV PRN (22:34)
[2023-11-07] MEDS ORDERED: ceFAZolin 2 GM in Sodium Chloride 0.9% 50 ML IV ONE (22:34)
[2023-11-07] MEDS ORDERED: Methylergonovine 0.2 MG/1 ML Amp IM PRN (22:34)
[2023-11-07] MEDS ORDERED: Carboprost Tromethamine 250 MCG/1 mL Vial IM PRN (22:34)
[2023-11-07] MEDS ORDERED: Tranexamic Acid IN NACL,ISO-OS 1,000 MG in Premix Bag 1 BAG IV PRN (22:34)
[2023-11-07] MEDS ORDERED: Sodium Chloride 0.9% 2.5 ML Syringe FLUSH PRN (22:34)
[2023-11-07] MEDS: Lactated Ringers 1,000 ML IV SCH (22:35)
[2023-11-07] MEDS ORDERED: Oxytocin/0.9 % Sodium Chloride 30 UNIT/500 ML BAG IV SCH (22:45)
[2023-11-07] MEDS ORDERED: fentaNYL 100 MCG/2 ML SDV ONE (22:54)
[2023-11-07] MEDS ORDERED: Morphine PF 10 MG/10 ML SDV ONE (22:55)
[2023-11-07] MEDS ORDERED: Oxytocin 10 Units/1 ML SDV ONE ×2 (22:58→23:32)
[2023-11-07] MEDS ORDERED: ceFAZolin 1 GM Vial ONE (22:58)
[2023-11-07] MEDS ORDERED: Ropivacaine 0.5% 5 MG/ML 30 ML SDV ONE (22:58)
[2023-11-07] MEDS ORDERED: Phenylephrine HCl In 0.9% NaCl 1 MG/10 ML Syringe ONE ×2 (22:58→23:35)
[2023-11-07 22:59] LABS: HEMATOCRIT 37.5 % (37.0-47.0); HEMOGLOBIN 12.2 g/dL (12.0-16.0); MEAN CORPUSCULAR HGB CONC 32.5 g/dL (32.0-36.0); MEAN CORPUSCULAR VOLUME 86.2 fL (83.0-99.0); MEAN PLATELET VOLUME 11.2 fL (9.4-12.3); PLATELET COUNT,PLT 226 K/uL (150-400); RED BLOOD CELL COUNT 4.35 M/uL (4.10-5.30); WHITE BLOOD CELL COUNT,WBC 12.18 K/uL (3.9-11.3)
[2023-11-07] MEDS ORDERED: Ondansetron 4 MG/2 ML SDV ONE (23:00)
[2023-11-07] MEDS ORDERED: Water For Injection, Sterile 20 ML ONE (23:11)
[2023-11-07] MEDS ORDERED: dexmedeTOMIDine HCl 200 MCG/2 ML SDV ONE (23:11)
[2023-11-07] MEDS ORDERED: Dexamethasone 4 MG/ML 5 ML MDV ONE (23:23)
[2023-11-07] MEDS ORDERED: Tranexamic Acid 1,000 MG/10 ML Vial ONE (23:28)
[2023-11-08] MEDS ORDERED: Phenylephrine HCl In 0.9% NaCl 1 MG/10 ML Syringe ONE (00:03)
[2023-11-08] MEDS ORDERED: Dexamethasone 4 MG/ML 5 ML MDV ONE (00:05)
[2023-11-08] MEDS ORDERED: Acetaminophen/oxyCODONE 325-5 MG Tab PO PRN ×2 (00:49)
[2023-11-08] MEDS ORDERED: Lanolin 100% Cream 7 GM Tube TOP PRN (00:49)
[2023-11-08] MEDS ORDERED: Ibuprofen 800 MG Tab PO PRN (00:49)
[2023-11-08] MEDS ORDERED: Bisacodyl 10 MG Supp RECTAL PRN (00:49)
[2023-11-08] MEDS ORDERED: Temazepam 15 MG Cap PO PRN (00:49)
[2023-11-08] MEDS ORDERED: fentaNYL 50 MCG/ML SDV IVPUSH PRN (00:58)
[2023-11-08] MEDS ORDERED: Naloxone 0.4 MG/ML SDV IVPUSH PRN (00:58)
[2023-11-08] MEDS ORDERED: Metoclopramide 10 MG/2 ML SDV IVPUSH PRN (00:58)
[2023-11-08] MEDS ORDERED: Ondansetron 4 MG/2 ML SDV IVPUSH PRN ×2 (00:58)
[2023-11-08] MEDS ORDERED: HYDROmorphone 1 MG/ML Syringe IVPUSH PRN (00:58)
[2023-11-08] MEDS ORDERED: Morphine 2 MG/ML SYRINGE IVPUSH PRN (00:58)
[2023-11-08] MEDS ORDERED: Albuterol 0.083% 2.5 MG/3 ML Neb Soln NEB PRN (00:58)
[2023-11-08] MEDS ORDERED: droPERidol 5 MG/2 ML SDV IVPUSH PRN (00:58)
[2023-11-08] MEDS ORDERED: fentaNYL 100 MCG/2 ML SDV IVPUSH PRN (00:58)
[2023-11-08] MEDS ORDERED: Lactated Ringers 1,000 ML IV SCH (01:00)
[2023-11-08] MEDS: diphenhydrAMINE 50 MG/ML SDV IVPUSH PRN ×2 (01:38→03:27)
[2023-11-08 01:40] LABS: PH,UMBILICAL ARTERIAL 7.257 (7.18-7.38); PH,UMBILICAL VENOUS 7.29 (7.25-7.45)
[2023-11-08] MEDS: Ketorolac 30 MG/ML SDV IVPUSH SCH (01:50)
[2023-11-08] MEDS: Acetaminophen 1,000 MG in Premix Bag 1 BAG IV SCH (03:16)
[2023-11-08] MEDS: Simethicone 80 MG Tab.Chew PO SCH (05:55)
[2023-11-08] MEDS: Nalbuphine 10 MG/0.5 ML Syringe IVPUSH PRN (06:48)
[2023-11-08] MEDS ORDERED: Ferrous Sulfate 325 MG Tab PO SCH (08:00)
[2023-11-08] MEDS: Prenatal Multivitamin with Calcium/Folic Acid/Iron Tab PO SCH (08:37)
[2023-11-08] MEDS: Ketorolac 30 MG/ML SDV IVPUSH PRN (08:38)
[2023-11-08] MEDS ORDERED: Docusate Sodium 100 MG Cap PO SCH (09:00)
[2023-11-08] MEDS: hydrOXYzine HCl 25 MG Tab PO PRN (10:54)
[2023-11-09] MEDS: Acetaminophen/oxyCODONE 325-5 MG Tab PO PRN (07:37)
[2023-11-09] MEDS: Ketorolac 30 MG/ML SDV IVPUSH ONE (10:37)
[2023-11-09] MEDS: Acetaminophen 500 MG Tab PO SCH (10:51)
[2023-11-09] MEDS: oxyCODONE 5 MG Tab PO PRN (11:18)
[2023-11-09] MEDS: Ibuprofen 600 MG Tab PO SCH (12:26)
[2023-11-09] MEDS: Docusate Sodium 100 MG Cap PO SCH (14:58)
[2023-11-10 06:09] LABS: HEMATOCRIT 29.3 % (37.0-47.0); HEMOGLOBIN 9.3 g/dL (12.0-16.0)
[2023-11-10 13:18] VITALS: BP 110/60; PULSE 107
== END 2023-11-10 14:30 | disposition home or self-care (01) | DRG 540 ==
LOC: MW.OBCHECK 20:33 → MW.OB 20:41 → MW.OBCHECK 23:33 → MW.OB 23:34 → OBSVTOIN 23:34 → MW.OB 11-08 03:33
PROVIDERS: ADMIT Obstetrics & Gynecology; ATTEND Obstetrics & Gynecology
PROC: 10D00Z1 Extraction of Products of Conception, Low, Open Approach (ICD-10-PCS; principal; 2023-11-07 11:02)
DX: O34.211 Maternal care for low transverse scar from previous cesarean delivery (principal); O99.214 Obesity complicating childbirth; Z3A.37 37 weeks gestation of pregnancy; Z88.8 Allergy status to other drugs, medicaments and biological substances; Z37.0 Single live birth; Z91.040 Latex allergy status
CPT/HCPCS: 01961; 36415; 59514; 64488; 81003; 82803; 85014; 85018; 85027; 86592; 86850; 86900; 86901; A9270-GY; J0131; J0690; J1100; J1200; J1885; J2274; J2300; J2371; J2405; J2590; J2795; J3010; J3490; J7120